=== PATIENT | female | born 1960 | race Caucasian/White ===

== ENCOUNTER → 2016-08-17 17:23 | Outpatient (CLI) | payer OTHER ==
[2013-12-31 05:46] VITALS: BMI 23.4
[~2016-08-17 17:23] MED LIST: HYDROCODONE-APA1 TAB PO
== END | disposition home or self-care (01) ==
LOC: D.MAMMO 07-28 16:00
DX: Z12.31 Encounter for screening mammogram for malignant neoplasm of breast (principal)